=== PATIENT | female | born 1965 | race Caucasian/White ===

== ENCOUNTER → 2016-02-23 | Outpatient (CLI) | payer OTHER ==
[~2016-02-23] MED LIST: AMOXICILLIN875 MG PO; ANTIVERT 25MG25 MG PO; DESYREL 100MG100 MG PO; EFFEXOR; EXCEDRIN MIGRAI1 TAB PO; FETZIMA80 PO; LAMICTAL200 MG PO; LATUDA40 MG; LEXAPRO20 MG PO; LIPITOR 40MG TA40 MG PO; MOBIC15 MG PO; NIACIN500 MG; NORCO PO; PEPCID 20MG TAB20 MG PO; PHENTERMINE15 MG PO; PREMPRO 0.45 MG1 TAB PO; PROTONIX 40MG T40 MG PO; RESTORIL30 MG; SEROQUEL 1100 MG/TAB PO; TRADJENTA5 MG PO; VICTOZA6 MG/ML; VISTARIL 2525 MG/CAP PO; WELLBUTRIN XL300 M1 PO; XANAX 0.5MG0.5 MG PO
== END ==
LOC: BHSO 13:38
DX: F33.41 Major depressive disorder, recurrent, in partial remission (principal)

== ENCOUNTER → 2016-03-21 | Outpatient (CLI) | payer OTHER | LOC: COL.RAD 08:25 | DX: M25.552 Pain in left hip (principal) | CPT/HCPCS: J0690; J1100; J1885; J2250; J2405; J2704; J3010; J3301; Q9967 ==

== ENCOUNTER → 2016-04-16 | Outpatient (CLI) | payer OTHER ==
[~2016-04-16] VITALS: Ht 165.1 cm; Wt 117.3 kg
[2016-04-16 15:40] VITALS: BP 125/65; PULSE 95
== END ==
LOC: LIGHT 15:25
DX: F33.8 Other recurrent depressive disorders (principal); E11.9 Type 2 diabetes mellitus without complications; G47.33 Obstructive sleep apnea (adult) (pediatric); E66.01 Morbid (severe) obesity due to excess calories; Z68.41 Body mass index [BMI] 40.0-44.9, adult

== ENCOUNTER → 2016-04-30 | Outpatient (CLI) | payer OTHER | LOC: LIGHT 13:26 | DX: Z68.41 Body mass index [BMI] 40.0-44.9, adult (principal) ==

== ENCOUNTER → 2016-05-23 | Outpatient (CLI) | payer OTHER ==
[~2016-05-23] VITALS: Ht 165.1 cm; Wt 115.2 kg
[2016-05-23 15:38] VITALS: BP 125/50; PULSE 94
== END ==
LOC: LIGHT 05-14 08:09
DX: F33.8 Other recurrent depressive disorders (principal); E11.9 Type 2 diabetes mellitus without complications; G47.33 Obstructive sleep apnea (adult) (pediatric); E66.01 Morbid (severe) obesity due to excess calories; Z68.41 Body mass index [BMI] 40.0-44.9, adult

== ENCOUNTER → 2016-05-24 | Outpatient (CLI) | payer OTHER | LOC: COL.RAD 07:55 | DX: M16.12 Unilateral primary osteoarthritis, left hip (principal) | CPT/HCPCS: J3301; Q9967 ==

== ENCOUNTER → 2016-05-29 | Outpatient (CLI) | payer OTHER | LOC: BHSO 14:27 | DX: F33.41 Major depressive disorder, recurrent, in partial remission (principal) ==

== ENCOUNTER → 2016-05-30 | Outpatient (CLI) | payer OTHER | LOC: LIGHT 13:50 | DX: Z71.3 Dietary counseling and surveillance (principal); Z68.41 Body mass index [BMI] 40.0-44.9, adult ==

== ENCOUNTER → 2016-06-03 | Outpatient (CLI) | payer OTHER | LOC: MC.RAD 15:10 | DX: Z12.31 Encounter for screening mammogram for malignant neoplasm of breast (principal) ==

== ENCOUNTER → 2016-07-15 | Outpatient (CLI) | payer OTHER | LOC: COL.LAB 11:56 | DX: Z96.642 Presence of left artificial hip joint (principal) ==

== ENCOUNTER → 2016-08-07 | Outpatient (CLI) | payer OTHER | LOC: BHSO 10:38 | DX: F33.42 Major depressive disorder, recurrent, in full remission (principal) ==

== ENCOUNTER → 2016-11-01 | Outpatient (CLI) | payer OTHER | LOC: BHSO 14:28 | DX: F33.42 Major depressive disorder, recurrent, in full remission (principal) ==

== ENCOUNTER → 2017-04-22 | Outpatient (CLI) | payer OTHER ==
[~2017-04-22] MED LIST changes: +MULTIPLE VITAMI1 CAP PO; +PREMPRO 0.3 MG-1 TAB PO
== END ==
LOC: BHSO 14:25
DX: F33.41 Major depressive disorder, recurrent, in partial remission (principal)
CPT/HCPCS: G0463

== ENCOUNTER → 2017-07-10 | Outpatient (CLI) | payer OTHER | LOC: COL.LAB 15:37 | DX: Z96.642 Presence of left artificial hip joint (principal) ==

== ENCOUNTER → 2017-07-14 | Outpatient (CLI) | payer OTHER | LOC: MC.RAD 14:35 | DX: Z12.31 Encounter for screening mammogram for malignant neoplasm of breast (principal) ==

== ENCOUNTER → 2017-07-15 | Outpatient (CLI) | payer OTHER | LOC: COL.RAD | DX: Z96.642 Presence of left artificial hip joint (principal) | CPT/HCPCS: A9503 ==

== ENCOUNTER → 2017-09-24 | Outpatient (CLI) | payer OTHER | LOC: BHSO 14:31 | DX: F90.0 Attention-deficit hyperactivity disorder, predominantly inattentive type (principal) | CPT/HCPCS: G0463 ==

== ENCOUNTER 2017-10-15 15:15 | Outpatient (RCR) | payer OTHER | END 2017-12-17 16:39 | disposition home or self-care (01) | LOC: WSOT 15:15 | DX: M65.842 Other synovitis and tenosynovitis, left hand (principal); M65.841 Other synovitis and tenosynovitis, right hand; M65.332 Trigger finger, left middle finger; M65.312 Trigger thumb, left thumb; M65.331 Trigger finger, right middle finger ==

== ENCOUNTER → 2017-12-24 | Outpatient (CLI) | payer OTHER | LOC: BHSO 08:36 | DX: F33.41 Major depressive disorder, recurrent, in partial remission (principal) | CPT/HCPCS: G0463 ==

== ENCOUNTER → 2018-03-27 | Outpatient (CLI) | payer OTHER | LOC: BHSO 13:47 | DX: F33.42 Major depressive disorder, recurrent, in full remission (principal) | CPT/HCPCS: G0463 ==

== ENCOUNTER → 2018-04-14 | Outpatient (CLI) | payer OTHER | LOC: COL.RAD 10:18 | DX: R22.1 Localized swelling, mass and lump, neck (principal) ==

== ENCOUNTER → 2018-07-24 | Outpatient (CLI) | payer OTHER | LOC: MC.RAD 09:17 | DX: Z12.31 Encounter for screening mammogram for malignant neoplasm of breast (principal) ==

== ENCOUNTER → 2018-07-24 | Outpatient (CLI) | payer OTHER | LOC: BHSO 13:43 | DX: F33.41 Major depressive disorder, recurrent, in partial remission (principal) | CPT/HCPCS: G0463 ==

== ENCOUNTER → 2018-11-09 | Outpatient (CLI) | payer OTHER | LOC: BHSO 14:26 | DX: F33.42 Major depressive disorder, recurrent, in full remission (principal) | CPT/HCPCS: G0463 ==

== ENCOUNTER → 2019-08-04 | Outpatient (CLI) | payer OTHER | LOC: MC.RAD 14:30 | DX: Z12.31 Encounter for screening mammogram for malignant neoplasm of breast (principal) ==

== ENCOUNTER → 2019-08-06 | Outpatient (CLI) | payer OTHER | LOC: BHSO 14:06 | DX: F41.1 Generalized anxiety disorder (principal) | CPT/HCPCS: G0463 ==

== ENCOUNTER → 2021-05-21 | Outpatient (CLI) | payer OTHER | LOC: MC.RAD 13:11 | DX: Z12.31 Encounter for screening mammogram for malignant neoplasm of breast (principal) ==

== ENCOUNTER 2021-09-25 07:12 | Emergency (ER) | payer OTHER ==
[~2021-09-25] VITALS: Ht 165.1 cm; Wt 119.1 kg
[2021-09-25 07:18] VITALS: TEMP 98.3
[2021-09-25 07:40] LABS: BASO # 0.1 K/mm3 (0.0-0.2); BASO % 0.7 % (0.0-2.0); EOS # 0.1 K/mm3 (0.0-0.7); EOS % 1.3 % (0.0-4.0); GRAN # 6.4 K/mm3 (1.4-6.5); GRAN % 66.2 % (42.2-75.2); HEMATOCRIT 46.5 % (37.0-47.0); HEMOGLOBIN 16.4 g/dl (12.5-16.0); LYMPH # 2.2 K/mm3 (1.2-3.4); LYMPH % 23.2 % (20.0-51.0); MEAN CELL VOLUME 92 fl (80.0-100.0); MEAN CORPUSCULAR HEMOGLOBIN 32 pg (27-31); MEAN CORPUSCULAR HGB CONC 35 g/dl (33.0-37.0); MEAN PLATELET VOLUME 9.7 fl (7.4-10.4); MONO # 0.8 K/mm3 (0.1-0.6); MONO % 8.4 % (1.7-9.3); PLATELET COUNT 242 K/mm3 (130-400); RED BLOOD COUNT 5.08 M/mm3 (4.10-5.30); REDCELL DISTRIBUTION WIDTH-CV 12.7 % (11.5-14.5)
[2021-09-25 07:49] LABS: PROTHROMBIN TIME 11.7 SECONDS (9.7-12.8)
[2021-09-25 07:52] LABS: PARTIAL THROMBOPLASTIN TIME 33.3 SECONDS (26.0-37.0)
[2021-09-25 07:57] LABS: ALANINE AMINOTRANSFERASE 42 U/L (0-55); ALBUMIN 4.4 gm/dL (3.5-5.0); ALKALINE PHOSPHATASE 97 U/L (40-150); ANION GAP 14 mmol/L (7-16); AST,SGOT 32 U/L (5-34); BILIRUBIN,TOTAL 0.8 mg/dL (0.2-1.2); BLOOD UREA NITROGEN 8 mg/dL (10-20); CALCIUM 9.8 mg/dL (8.4-10.2); CARBON DIOXIDE 18 mmol/L (22-29); CHLORIDE 109 mmol/L (98-107); CREATININE, serum 0.78 mg/dL (0.57-1.11); GLUCOSE 186 mg/dL (70-99); SODIUM 141 mmol/L (136-145); TOTAL PROTEIN 7.9 gm/dL (6.2-8.1)
[2021-09-25 08:06] LABS: TROPONIN-I < 0.010 ng/mL (0.00-0.033)
[2021-09-25] MEDS ORDERED: MOBIC15 MG PO (08:57)
[2021-09-25] MEDS ORDERED: NEURONTIN300 MG/CAP PO (08:58)
[2021-09-25] MEDS ORDERED: NEURONTIN300 MG/CAP (08:58)
[2021-09-25] MEDS ORDERED: PRISTIQ100 MG PO (08:59)
[2021-09-25] MEDS ORDERED: JANUVIA50 MG PO (08:59)
[2021-09-25] MEDS ORDERED: RESTORIL30 MG (08:59)
[2021-09-25] MEDS ORDERED: LIPITOR 40MG TA40 MG PO (08:59)
[2021-09-25] MEDS ORDERED: VITAMIN FLUSH-F1 CAP (08:59)
[2021-09-25] MEDS ORDERED: ATARAX 25MG25 MG/TAB PO (09:59)
[2021-09-25 10:00] VITALS: BP 110/86; PULSE 75
== END 2021-09-25 10:13 | disposition home or self-care (01) ==
LOC: COL.ER 07:12
PROVIDERS: Family Medicine
DX: F41.0 Panic disorder [episodic paroxysmal anxiety] (principal); F17.210 Nicotine dependence, cigarettes, uncomplicated
CPT/HCPCS: J1790; J2060

== ENCOUNTER → 2023-09-23 | Outpatient (CLI) | payer OTHER ==
[~2023-09-23] MED LIST changes: +ATARAX 25MG25 MG/TAB PO; +JANUVIA50 MG PO; +NEURONTIN300 MG/CAP; +NEURONTIN300 MG/CAP PO; +PRISTIQ100 MG PO; +VITAMIN FLUSH-F1 CAP
== END ==
LOC: MC.RAD 13:02
DX: Z12.31 Encounter for screening mammogram for malignant neoplasm of breast (principal)

== ENCOUNTER → 2023-10-10 | Outpatient (CLI) | payer OTHER | LOC: COL.RAD 14:29 | DX: Z12.2 Encounter for screening for malignant neoplasm of respiratory organs (principal); F17.290 Nicotine dependence, other tobacco product, uncomplicated ==